=== PATIENT | male | born 1980 | race Caucasian/White ===

== ENCOUNTER 2017-01-01 19:00 | Emergency (ER) | payer SELFPAY ==
--- NOTE | ~2017-01-01 | CT114 ---
[facility] A Service of [facility] & [facility] RADIOLOGY TEXT RESULTS PATIENT: TUNG BAUMAN LOCATION: SED : 78 UNIT #: [id number] AGE: [address]: CHUCKIE ELIZABETH SEX: M ORDER DR: [id number] [place] [id number] E MR#: [id number] Acc #: [id number] NAME: TUNG BAUMAN : 1980 SEX: M STUDY DATE/TIME: 01/01/2017 19:24 UNIT: SED ROOM: STUDY DESCRIPTION: CT Soft Tissue Neck W Cont Attending Physician: Chuckie Elizabeth Ordering Physician: Chuckie Elizabeth Primary Care Physician: Primary Care Physician No MEDICAL IMAGING REPORT This report is preliminary unless electronic signature is present. EXAM CT soft tissue neck with IV contrast COMPARISON None. INDICATIONS 36-year-old male with swollen tonsils and worsening diffuse neck pain over the past week. This CT exam was performed with one or more of the following radiation dose reduction techniques: automatic exposure control, adjustment of mA and/or kV according to patient size, and iterative reconstruction. FINDINGS Axial CT imaging of the neck was performed using soft tissue protocol after IV administration of 100 mL of Isovue-370. Coronal and sagittal reformats were constructed. In the superior right neck there is a 2.5 cm long axis cervical lymph node with a separate left neck 2.7 cm long axis lymph node. There are other prominent more inferior left cervical lymph nodes, largest of which measures up to 1.8 cm short axis. There is hypertrophy of the palatine tonsils, without evidence of associated abscess. There is hypertrophy of the adenoid tonsils as well, left greater than right with some effacement of the posterior nasopharynx. No evidence of abscess. There is an indeterminate density lobular structure projecting from the apices of the left maxillary teeth and lifting the floor of the left maxillary sinus. This has benign features as the floor of the left maxillary sinus appears intact. Nasal bone fractures are noted, of uncertain acuity. No acute findings in the pulmonary apices. The trachea is widely patent. There is a caries of the posterior right most mandibular tooth and there is also a right maxillary dental caries with periapical lucency. The roots of the posterior most left maxillary teeth at the level of the soft tissue density appear to be eroded. [facility]. [facility] A Service of [facility] RADIOLOGY TEXT RESULTS PATIENT: TUNG BAUMAN LOCATION: JOSS : 78 UNIT #: [id number] AGE: [address]: CHUCKIE ELIZABETH SEX: M ORDER DR: IMPRESSION 1. Hypertrophy of the palatine and adenoid tonsils without evidence of tonsillar abscess or abscess in other locations in the visualized neck. 2. Bilateral cervical adenopathy, possibly reactive. Clinical correlation and imaging followup recommended as clinically indicated. The hypopharynx and trachea remain widely patent. 3. Bilateral nasal bone fractures of uncertain acuity, favored to be subacute to chronic. 4. Multiple dental caries. There is a periapical lucency associated with one of the right-sided maxillary teeth which may represent periapical abscess. There is also a large cystic structure associated with the roots of the two posterior-most left maxillary teeth which is lifting the floor of the left maxillary sinus. These may represent chronic periapical abscess or periapical granuloma. Given this finding and the others, outpatient dental consultation is recommended. Dictated by... Clarence Daly M.D. THIS IS AN ELECTRONICALLY VERIFIED REPORT Clarence Daly M.D. at 01/05/2017 8:45 AM Yajaira TD: 01/02/2017 00:31 JOB #: [id number] MEDICAL IMAGING REPORT Page 1 of 1
[~2017-01-01 19:00] MED LIST: AMOXICILLIN PO; BENTYL20 M1 PO; CLARITIN10 MG PO; DICYCLOMINE HCL20 MG PO; FLEXERIL PO; FLONASE16 GM; IBUPROFEN; IBUPROFEN PO; NO MEDICATIONS; PERCOCET5/325 PO; PHENERGAN PO; ROBITUSSIN ALL118 ML PO; SINGULAIR PO; VICODIN 5/1 TAB 5/50 PO; VICODIN 5/500 T1 TAB PO; VOLTAREN75 MG PO; ZOFRAN ODT4 MG PO
[2017-01-01 19:25] LABS: POC - CREATININE 1.17 mg/dL (0.64-1.27); POC - GFR >60.0 mL/min (>60)
== END 2017-01-01 21:40 | disposition home or self-care (01) ==
LOC: SED 19:00
PROVIDERS: Nurse Practitioner
DX: J02.0 Streptococcal pharyngitis (principal); F17.210 Nicotine dependence, cigarettes, uncomplicated; Z90.49 Acquired absence of other specified parts of digestive tract; Z98.890 Other specified postprocedural states; Z91.040 Latex allergy status
CPT/HCPCS: 36415; 70491; 82565; 86308; 87880; 96374; 99284; J1885; Q9967